=== PATIENT | female | born 1965 | race Caucasian/White ===

== ENCOUNTER 2021-01-09 06:16 | Emergency (ER) | payer OTHER ==
[~2021-01-09] VITALS: Ht 170.2 cm; Wt 117.0 kg
[2021-01-09 06:35] VITALS: BP 119/65
--- NOTE | 2021-01-09 06:59 | PHYS DOC ---
General Adult EDM: Chief Complaint: FEVER HPI: HPI: Patient is a 55-year-old female coming in for fever, chills, body aches, cough, shortness of breath, and sore throat for about 1.5 days. Patient states takes ibuprofen last night. Says she has had temperatures around 101. 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 She has not had her influenza vaccine this year. Denies any history of lung problems, other than pneumonia. Patient states that she has had her oxygen saturation dropped to the mid to upper 80s at home. Denies any GI complaints. Denies any loss of smell or taste but states she has had decreased appetite. Patient states yesterday she was tested for Covid at work, had a rapid that was negative but is pending PCR Review of Systems: Review of Systems: All other systems within normal limits except for as noted in the HPI Allergies: Allergies: Allergies Coded Allergies Type Severity Reaction Last Updated Verified COVID-19 (SARS-CoV-2) vaccine, azael Allergy Severe 01/09/21 Yes Physical Exam: PE: Constitutional: Well developed, well nourished, no acute distress, non-toxic appearance. [] HENT: Normocephalic, atraumatic, bilateral external ears normal, nose normal. [] Eyes: PERRLA, conjunctiva normal, no discharge. [] Neck: No rigidity, supple, no stridor. [] Cardiovascular: Regular rate and rhythm, brisk cap refill [] Lungs & Thorax: Non labored symmetric respirations, no tachypnea or respiratory distress [] Abdomen: Soft, nondistended. Skin: Warm, dry, no erythema, no rash. [] Back: Unremarkable Extremities: No deformities, range of motion grossly intact, no lower extremity edema [] Neurologic: Alert and oriented X 3, no focal deficits noted. [] Psychologic: Affect normal, judgement normal, mood normal. [] EKG: EKG: Sinus rhythm, heart rate 72-minute, normal axis, no ST elevation or depression, no ectopy. [] Radiology/Procedures: Radiology/Procedures: [address] [address] IMAGING REPORT Signed PATIENT: THANG ANGEL ACCOUNT: [id number] : 1965 LOCATION: ER AGE: 55 SEX: F EXAM STATUS: REG ER ORD. PHYSICIAN: DESIREE DUQUE MD REASON: CHEST PAIN, SHORTNESS OF BREATH, WEAKNESS HX PNEUMONIA PROCEDURE: CHEST PA & LATERAL XR CHEST 2V History: Chest pain, shortness of breath, weakness. Comparison: None. Technique: PA and lateral chest radiographs. Findings: The lungs are adequately inflated. Linear opacities in the left mid and lower lobe. No pleural effusion or pneumothorax. The cardiac size is normal. There are calcified hilar lymph nodes. Osseous structures and soft tissues are within normal limits. Impression: 1. Left lung primarily linear opacities likely represent atelectasis. Superimposed infectious process can't be excluded. Electronically signed by: Phani Acosta MD (01/09/2021 7:50 AM) [id number] DICTATED AND SIGNED BY: PHANI ACOSTA MD DATE: 01/09/21 0748 CC: DESIREE DUQUE MD; PCP,NO ~MTH0 0 [] Heart Score: C/O Chest Pain: No Risk Factors: Risk Factors: DM, Current or recent (<one month) smoker, HTN, HLP, family history of CAD, obesity. Risk Scores: Score 0 - 3: 2.5% MACE over next 6 weeks - Discharge Home Score 4 - 6: 20.3% MACE over next 6 weeks - Admit for Clinical Observation Score 7 - 10: 72.7% MACE over next 6 weeks - Early Invasive Strategies Course & Med Decision Making: Course & Med Decision Making Pertinent Labs and Imaging studies reviewed. (See chart for details) [] Dragon Disclaimer: Dragon Disclaimer: This electronic medical record was generated, in whole or in part, using a voice recognition dictation system. Departure Departure: Impression: Primary Impression: Pneumonia Disposition: HOME / SELF CARE / HOMELESS Condition: STABLE Referrals: PCP,NO (PCP) Patient Instructions: Pneumomediastinum Scripts Amoxicillin/Potassium Clav (AUGMENTIN 875-125 TABLET) 1 Each Tablet 1 TAB PO BID for antibiotic for 5 Days, #10 TAB 0 Refills Prov: DESIREE DUQUE MD 01/09/21 DESIREE DUQUE MD Jan 09, 2021 06:59
--- NOTE | 2021-01-09 07:40 | EKG ---
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
--- NOTE | 2021-01-09 07:52 | RAD ---
XR CHEST 2V History: Chest pain, shortness of breath, weakness. Comparison: None. Technique: PA and lateral chest radiographs. Findings: The lungs are adequately inflated. Linear opacities in the left mid and lower lobe. No pleural effusi on or pneumothorax. The cardiac size is normal. There are calcified hilar lymph nodes. Osseous struct ures and soft tissues are within normal limits. Impression: 1. Left lung primarily linear opacities likely represent atelectasis. Superimposed infectious proces s can't be excluded. Electronically signed by: Phani Acosta MD (01/09/2021 7:50 AM) [id number]
[2021-01-09 08:15] LABS: BASO # 0.1 x10^3/uL (0.0-0.2); BASO % 1 % (0-3); EOS % 0 % (0-3); HEMATOCRIT 43.6 % (36.0-47.0); HEMOGLOBIN 14.1 g/dL (12.0-15.5); LYMPH # 1.4 x10^3/uL (1.0-4.8); LYMPH % 30 % (24-48); MEAN CORPUSCULAR HEMOGLOBIN 28 pg (25-35); MEAN CORPUSCULAR HGB CONC 33 g/dL (31-37); MEAN CORPUSCULAR VOLUME 85 fL (79-100); MONO # 0.5 x10^3/uL (0.0-1.1); MONO % 12 % (0-9); NEUT # 2.6 x10^3uL (1.8-7.7); NEUT % 56 % (31-73); PLATELET COUNT 186 x10^3/uL (140-400); WHITE BLOOD COUNT 4.5 x10^3/uL (4.0-11.0)
[2021-01-09 08:17] LABS: CALCIUM 8.9 mg/dL (8.5-10.1); GFR 57.4; POTASSIUM 4.3 mmol/L (3.5-5.1)
[2021-01-09 08:29] LABS: ALBUMIN 3.7 g/dL (3.4-5.0); ALBUMIN/GLOBULIN RATIO 1.2 (1.0-1.7); TOTAL BILIRUBIN 0.2 mg/dL (0.2-1.0); TOTAL PROTEIN 6.7 g/dL (6.4-8.2)
[2021-01-09 08:34] LABS: INFLUENZA A PATIENT NEGATIVE (NEGATIVE); INFLUENZA B PATIENT NEGATIVE (NEGATIVE)
[2021-01-09] MEDS ORDERED: AMOX1TAB61 PO (09:26)
== END 2021-01-09 09:31 | disposition home or self-care (01) ==
LOC: ER 06:16
DX: J18.9 Pneumonia, unspecified organism (principal); Z88.7 Allergy status to serum and vaccine
CPT/HCPCS: 36415; 71046; 80053; 83605; 83880; 84484; 85025; 85379; 87804; 93005; 99285

== ENCOUNTER 2021-01-16 09:46 | Emergency (ER) | payer OTHER ==
[~2021-01-16] VITALS: Ht 170.2 cm; Wt 116.0 kg
[~2021-01-16 09:46] MED LIST: AMOX1TAB61 PO
--- NOTE | 2021-01-16 10:37 | EKG ---
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
--- NOTE | 2021-01-16 10:39 | RAD ---
Single view of the chest. 01/16/2021 10:25 AM Indication: Reason: SOB, COVID+ / Spl. Instructions: / History: Comparison: Chest radiograph January 09, 2021 Findings: Interval development of mild right upper and to a lesser fibula lower lobe infiltrate. Mild interstitial coarsening appears to be increase in the interim. Heart size is normal. No acute osseou s changes are noted. IMPRESSION: Interval development of right upper lobe infiltrate and mild diffuse interstitial thicken ing. Findings could reflect an atypical or viral pneumonia. Radiographic follow-up advised. Electronically signed by: Riley Truong MD (01/16/2021 10:37 AM) [id number]
[2021-01-16 11:02] LABS: BASO % 0 % (0-3); EOS % 0 % (0-3); HEMOGLOBIN 13.9 g/dL (12.0-15.5); LYMPH % 13 % (24-48); MEAN CORPUSCULAR HEMOGLOBIN 28 pg (25-35); MEAN CORPUSCULAR HGB CONC 33 g/dL (31-37); MEAN CORPUSCULAR VOLUME 84 fL (79-100); MONO # 0.2 x10^3/uL (0.0-1.1); MONO % 2 % (0-9); NEUT # 6.4 x10^3uL (1.8-7.7); NEUT % 85 % (31-73); PLATELET COUNT 169 x10^3/uL (140-400); RED BLOOD COUNT 5.01 x10^6/uL (3.50-5.40); RED CELL DISTRIBUTION WIDTH 14.5 % (11.5-14.5); WHITE BLOOD COUNT 7.6 x10^3/uL (4.0-11.0)
[2021-01-16] MEDS ORDERED: ALBUTEROL SULFATE 8GM INHALER. ONE (11:09)
[2021-01-16 11:15] LABS: ALBUMIN 2.8 g/dL (3.4-5.0); ALBUMIN/GLOBULIN RATIO 0.8 (1.0-1.7); CALCIUM 8.6 mg/dL (8.5-10.1); CREATININE 0.8 mg/dL (0.6-1.0); GFR 74.2; POTASSIUM 3.7 mmol/L (3.5-5.1); TOTAL BILIRUBIN 0.3 mg/dL (0.2-1.0); TOTAL PROTEIN 6.5 g/dL (6.4-8.2)
[2021-01-16] MEDS ORDERED: ALBUTEROL SULFATE 8GM INHALER. INH ONE (11:15)
--- NOTE | 2021-01-16 11:18 | PHYS DOC ---
Past History Additional Past Medical Histor: PTSD (ADONAY EID) Past Surgical History: Cholecystectomy, Tonsillectomy (ADONAY EID) Alcohol Use: None (ADONAY EID) General Adult EDM: Chief Complaint: SHORTNESS OF BREATH HPI: HPI: Patient is a 55 year old female with known COVID pneumonia who presents with worsening dyspnea on exertion, weakness, shortness of breath. Patient was seen 1 week ago and diagnosed with pneumonia. The next day, she had positive COVID test results. She reports her oxygen saturation at home is between 73 and 85%. Patient returned to the emergency department as her symptoms were worsening rather than improving. Patient received first dose of [employer] COVID-19 vaccine, but had an anaphylactic reaction to the vaccination. 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 (ADONAY EID) Review of Systems: Review of Systems: 12 systems reviewed. ROS negative except as mentioned in HPI. (ADONAY EID) Allergies: Allergies: Allergies Coded Allergies Type Severity Reaction Last Updated Verified COVID-19 (SARS-CoV-2) vaccine, azael Allergy Severe 01/09/21 Yes (ADONAY EID) Physical Exam: PE: Constitutional: Patient appears fatigued, obese, well groomed. Cardiovascular: Heart rate regular rhythm, no murmur. Lungs & Thorax: Diffuse decreased breath sounds without rales or rhonchi. Abdomen: Bowel sounds normal, soft, no tenderness, no masses, no pulsatile m asses. Skin: Warm, dry, no erythema, no rash, poor turgor. Extremities: No tenderness, no cyanosis, no clubbing, ROM intact, no edema. Neurologic: Alert and oriented x4, motor function intact, sensory function intact, no focal deficits noted. (ADONAY EID) Current Patient Data: Labs: Laboratory Tests Test 01/16/21 10:37 White Blood Count 7.6 x10^3/uL (4.0-11.0) Red Blood Count 5.01 x10^6/uL (3.50-5.40) Hemoglobin 13.9 g/dL (12.0-15.5) Hematocrit 42.0 % (36.0-47.0) Mean Corpuscular Volume 84 fL (79-100) Mean Corpuscular Hemoglobin 28 pg (25-35) Mean Corpuscular Hemoglobin Concent 33 g/dL (31-37) Red Cell Distribution Width 14.5 % (11.5-14.5) Platelet Count 169 x10^3/uL (140-400) Neutrophils (%) (Auto) 85 % (31-73) Lymphocytes (%) (Auto) 13 % (24-48) Monocytes (%) (Auto) 2 % (0-9) Eosinophils (%) (Auto) 0 % (0-3) Basophils (%) (Auto) 0 % (0-3) Neutrophils # (Auto) 6.4 x10^3uL (1.8-7.7) Lymphocytes # (Auto) 1.0 x10^3/uL (1.0-4.8) Monocytes # (Auto) 0.2 x10^3/uL (0.0-1.1) Eosinophils # (Auto) 0.0 x10^3/uL (0.0-0.7) Basophils # (Auto) 0.0 x10^3/uL (0.0-0.2) Sodium Level 135 mmol/L (136-145) Potassium Level 3.7 mmol/L (3.5-5.1) Chloride Level 104 mmol/L (98-107) Carbon Dioxide Level 21 mmol/L (21-32) Anion Gap 10 (6-14) Blood Urea Nitrogen 17 mg/dL (7-20) Creatinine 0.8 mg/dL (0.6-1.0) Estimated GFR (Cockcroft-Gault) 74.2 BUN/Creatinine Ratio 21 (6-20) Glucose Level 101 mg/dL (70-99) Calcium Level 8.6 mg/dL (8.5-10.1) Total Bilirubin 0.3 mg/dL (0.2-1.0) Aspartate Amino Transf (AST/SGOT) 31 U/L (15-37) Alanine Aminotransferase (ALT/SGPT) 25 U/L (14-59) Alkaline Phosphatase 79 U/L (46-116) Total Protein 6.5 g/dL (6.4-8.2) Albumin 2.8 g/dL (3.4-5.0) Albumin/Globulin Ratio 0.8 (1.0-1.7) Lipase 103 U/L (73-393) Vital Signs: VS - Last 72 Hours, by Label Date Time Temp Pulse Resp B/P (MAP) Pulse Ox O2 Delivery O2 Flow Rate FiO2 01/16/21 11:26 98.4 70 16 119/81 (94) 92 Room Air 01/16/21 09:52 98.4 73 16 117/69 (85) 92 Room Air (ADONAY EID) EKG: EKG: EKG Interpreted by Dr. Mello at 1034: Regular rate and rhythm 73 bpm with no ectopic beats. No concerning ST-T wave changes. Regular QR interval. (ADONAY EID) Radiology/Procedures: Radiology/Procedures: PROCEDURE: PORTABLE CHEST 1V Single view of the chest. 01/16/2021 10:25 AM Indication: Reason: SOB, COVID+ / Spl. Instructions: / History: Comparison: Chest radiograph January 09, 2021 Findings: Interval development of mild right upper and to a lesser fibula lower lobe infiltrate. Mild interstitial coarsening appears to be increase in the interim. Heart size is normal. No acute osseous changes are noted. IMPRESSION: Interval development of right upper lobe infiltrate and mild diffuse interstitial thickening. Findings could reflect an atypical or viral pneumonia. Radiographic follow-up advised. Electronically signed by: Riley Truong MD (01/16/2021 10:37 AM) [id number] (ADONAY EID) Heart Score: C/O Chest Pain: N/A (ADONAY EID) Course & Med Decision Making: Course & Med Decision Making Pertinent Labs and Imaging studies reviewed. (See chart for details) Patient has known Covid pneumonia. Determination for her disposition today will be her oxygen requirements. Patient is consistently satting between 90 to 93% on room air. We will ambulate her within the room and monitor her oxygen saturation closely. On ambulation, patient's oxygen saturation improved by 2-3%. At this point, she is saturating enough to safely be discharged home. She is given strict return p recautions for worsening symptoms and shortness of breath. Patient is advised to turn her pulse oximeter sideways on her finger if she has nail mosotho on, better even to not wear nail mosotho. Patient will be given antibiotics and a new prescription for an albuterol inhaler. Patient understands and is agreeable to discharge plan. (ADONAY EID) Stephanie Disclaimer: Stephanie Disclaimer: This electronic medical record was generated, in whole or in part, using a voice recognition dictation system. (ADONAY EID) Attending Co-Sign The patient was seen and interviewed as well as examined at the bedside. The chart was reviewed. The case was discussed. Agree with the plan of care. (SERA MELLO DO) Departure Departure: Impression: Primary Impression: Pneumonia due to COVID-19 virus Additional Impression: Malaise and fatigue Disposition: 01 HOME / SELF CARE / HOMELESS Condition: STABLE Referrals: PCP,GRAY (PCP) Patient Instructions: Viral Syndrome Additional Instructions: You have been tested for or diagnosed with COVID-19. It is an infection caused by a new type of coronavirus. COVID-19 will cause cold-like or mild flu symptoms in most. It can cause more severe symptoms like problems breathing in some. There is no treatment for COVID-19. The body will clear the infection over time. Self-care will help to ease discomfort. Steps to Take: Self-Care Rest as needed. Healthy habits may help you feel better. Steps include: Choose healthy foods including fruits and vegetables. Drink water throughout the day. Get plenty of sleep each night. If you smoke, try to quit. It may ease breathing. Avoid alcohol. Keep Others Healthy The virus can spread to others. Droplets are released every time you sneeze or cough. The droplets can get into the mouth, nose, or eyes of people near you and lead to infection. To lower the chances of spreading COVID-19 to others: Stay at home until your doctor has said it is safe to leave. If you tested positive this will mean staying isolated until both of the following are true: At least 7 days have passed since the start of illness. You are free of fever for at least 72 hours without the use of medicine. During this time: - Avoid public areas, events, or transportation. Do not return to work or school until your doctor has said it is safe to do so. - Call ahead if you need to go to a medical center. Let them know you may have COVID-19. It will help them guide you where to go. They may also ask you to wear a facemask when you come to the office. - If you call for emergency medical services, let them know you may have COVID- 19. While at home: - Try to avoid close contact with others. Stay about 6 feet away. - If possible, spend most of your time in a separate room from others. - Use a face mask if you will be in close contact with others such as sharing a room or vehicle. - Have someone wipe down common surfaces in the home. Use household research program intern every day on areas like doorknobs, counters, or sinks. - Cough or sneeze into a tissue. Throw the tissue away right after use. If a tissue is not available, cough or sneeze into your elbow. - Wash your hands often. Wash them after sneezing or coughing. Use soap and water and wash for at least 20 seconds. Alcohol based hand boiler cleaner can be used if soap and water is not available. - Do not prepare food for others. Avoid sharing personal items like forks, spoons, or toothbrushes. - Avoid close contact with pets while you are sick. There is no evidence of the virus passing to pets. This is a safety step until more is known about this virus. Isolation can be frustrating. Social interaction can help. Keep in touch with friends and family through phone and tech options. You can still interact with others in your home, just keep a safe distance of about 6 feet. Follow-up: Your doctors office will check in with you to see if there are any changes in your health. You may be asked to keep track of symptoms to share with them. They will also let you know when you are clear to be in public again. Problems to Look Out For: Contact your doctor if your recovery is not going as you expect. Get emergency care if you have problems such as: - Trouble breathing - Nonstop chest pain or pressure - Changes in awareness, confusion, or problems waking - Lips or face have bluish color - Worsening of symptoms If you think you have an emergency, call for emergency medical services right away. As taken from [facility] Albuterol Sulfate (PROVENTIL HFA INHALER) 6.7 Gm Hfa.aer.ad 1 PUFF INH PRN Q4HRS PRN for SHORTNESS OF BREATH, #1 EACH 1 Refill Prov: ADONAY EID 01/16/21 Azithromycin (AZITHROMYCIN TABLET) 250 Mg Tablet 1 PKG PO UD for pna for 5 Days, #6 TAB 0 Refills 2 the first day followed by 1 for days 2-5 Prov: ADONAY EID 01/16/21 ADONAY EID Jan 16, 2021 11:18 SERA MELLO DO Jan 17, 2021 15:40
[2021-01-16 11:26] VITALS: BP 119/81
[2021-01-16] MEDS ORDERED: AZIT250T6 PO (11:40)
[2021-01-16] MEDS ORDERED: ALBU2.5V8 INH (11:40)
== END 2021-01-16 11:54 ==
LOC: ER 09:46
DX: U07.1 COVID-19 (principal); J12.82 Pneumonia due to coronavirus disease 2019; F43.10 Post-traumatic stress disorder, unspecified; Z88.8 Allergy status to other drugs, medicaments and biological substances
CPT/HCPCS: 36415; 71045; 80053; 83690; 85025; 93005; 94640; 99285; 94664